=== PATIENT | male | born 1960 | race Caucasian/White ===

== ENCOUNTER 2019-10-01 11:59 | Emergency (ER) | payer SELFPAY ==
[~2019-10-01] VITALS: Ht 180.3 cm; Wt 70.5 kg
[2019-10-01 12:05] VITALS: BP 142/86; Ht 180.3 cm; Wt 70.5 kg
[2019-10-01 12:57] LABS: EOSINOPHILS 1.5 % (0-7); HEMATOCRIT 35.1 % (42.0-54.0); LYMPHOCYTES 27.5 % (15-50); MCH 30.3 pg (26.0-34.0); MCHC 34.2 g/dL (31.0-37.0); MCV 88.6 fL (80.0-100.0); MONOCYTES 6.5 % (2-11); NEUTROPHILS 63.5 % (40-80); PLATELET COUNT 225 10x3/uL (130-400); RBC 3.96 10x6/uL (4.20-6.10); RDW 13.7 % (11.5-14.5); WBC 5.2 10x3/uL (4.8-10.8)
[2019-10-01 13:01] LABS: APTT 30.3 SECONDS (22.8-39.4); INR 1.16 (0.85-1.17); PROTIME 14.7 SECONDS (11.6-15.0)
[2019-10-01 13:07] LABS: CALC OSMOLALITY 274 mosm/kg (275-300); CALCIUM 8.6 mg/dL (8.5-10.1); CARBON DIOXIDE 26.9 mmol/L (21.0-32.0); CHLORIDE - SERUM 105 mmol/L (98-107); CREATININE - SERUM 0.9 mg/dL (0.6-1.3); GLUCOSE 91 mg/dL (74-106); POTASSIUM - SERUM 3.6 mmol/L (3.5-5.1); SODIUM 137 mmol/L (136-145); UREA NITROGEN 15 mg/dL (7-18); eGFR NON AFRICAN AMERICAN > 90 mL/min (90-120)
[2019-10-01 13:13] LABS: ALBUMIN 3.7 g/dL (3.4-5.0); ALKALINE PHOSPHATASE 66 U/L (30-120); ALT (SGPT) 73 U/L (10-68); BILIRUBIN - TOTAL 1.34 mg/dL (0.2-1.3)
[2019-10-01 13:42] LABS: BILIRUBIN NEGATIVE (NEGATIVE); GLUCOSE NEGATIVE (NEGATIVE); KETONE NEGATIVE (NEGATIVE); NITRITE NEGATIVE (NEGATIVE)
[2019-10-01] MEDS ORDERED: IBUPROFEN800 MG PO (14:00)
[2019-10-01] MEDS ORDERED: ACETAMINOPHEN500 M1 PO (14:00)
[2019-10-01] MEDS ORDERED: CYCLOBENZAPRINE10 MG PO (14:00)
== END 2019-10-01 14:46 | disposition home or self-care (01) ==
LOC: D.ER 11:59
PROVIDERS: Family Medicine
DX: M25.512 Pain in left shoulder (principal); M25.562 Pain in left knee; M79.18 Myalgia, other site; T14.8XXA Other injury of unspecified body region, initial encounter; X58.XXXA Exposure to other specified factors, initial encounter